=== PATIENT | male | born 1965 | race Caucasian/White ===

== ENCOUNTER 2021-03-28 19:02 | Inpatient (IN) | payer MEDICAID ==
[~2021-03-28] VITALS: Ht 182.9 cm; Wt 106.6 kg
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
[2021-03-28] MEDS ORDERED: ONDANSETRON HCL/PF 4 MG/2 ML VIAL ONE (20:23)
[2021-03-28] MEDS ORDERED: TDAP [DIPH/PERTUSSIS/TET] 0.5 ML VIAL IM ONE ×2 (20:23→20:30)
[2021-03-28] MEDS ORDERED: IV NS 0.9% 500 ML BAG IV ONE (20:30)
[2021-03-28] MEDS ORDERED: NALOXONE HCL 0.4 MG/ML AMPUL IV ONE (20:30)
[2021-03-28] MEDS ORDERED: ONDANSETRON HCL/PF 4 MG/2 ML VIAL IV ONE (20:30)
[2021-03-28 20:35] VITALS: BP 107/63
[2021-03-28] MEDS ORDERED: NALOXONE HCL 0.4 MG/ML AMPUL ONE (21:14)
--- NOTE | 2021-03-28 21:25 | NUR ---
COVID SWAB SENT TO LAB
--- NOTE | 2021-03-28 21:25 | NUR ---
BLOOD OBTAINED AND SENT TO LAB
[2021-03-28 21:29] LABS: BASOPHILS % (AUTO) 0.2 % (0.0-2.0); HEMATOCRIT 44 % (39-51); HEMOGLOBIN 14.4 g/dL (13.5-17.5); LYMPHOCYTES # (AUTO) 0.7 K/uL (0.8-4.8); LYMPHOCYTES % (AUTO) 3.9 % (20.0-44.0); MEAN CORPUSCULAR HGB CONC 33 g/dl (31.0-36.0); MEAN CORPUSCULAR VOLUME 86 fL (80-96); MONOCYTES # (AUTO) 0.9 K/uL (0.1-1.30); MONOCYTES % (AUTO) 4.7 % (2.0-12.0); NEUTROPHILS # (AUTO) 16.8 K/uL (1.8-8.9); NEUTROPHILS % (AUTO) 91.2 % (43.0-81.0); PLATELET COUNT (AUTO) 259 K/uL (150-450); RED BLOOD CELL COUNT(AUTO) 5.12 MIL/uL (4.5-6.0); WHITE BLOOD COUNT (AUTO) 18.4 K/uL (4.3-11.0)
--- NOTE | 2021-03-28 21:38 | NUR ---
CALL FROM LAB, RAPID COVID NEGATIVE.
[2021-03-28 21:44] LABS: ALBUMIN 3.9 g/dL (3.4-5.0); BILIRUBIN,DIRECT 0.1 mg/dL (0.0-0.2); BILIRUBIN,TOTAL 0.5 mg/dL (0.2-1.0); CREATININE 1.2 mg/dL (0.6-1.3); POTASSIUM 4.7 mmol/L (3.5-5.1); TOTAL PROTEIN, SERUM 7.9 g/dL (6.4-8.2)
--- NOTE | 2021-03-28 21:54 | NUR ---
TELE 063-5
--- NOTE | 2021-03-28 21:56 | NUR ---
PT REFUSED TO GIVE URINE, AWARE
[2021-03-28] MEDS ORDERED: ASPIRIN 81 MG TAB.CHEW PO ONE (22:00)
--- NOTE | 2021-03-28 22:11 | NUR ---
GAVE REPORT TO MICHEL JOHN FOR MYKEL
[2021-03-28] MEDS ORDERED: ZOLPIDEM TARTRATE 5 MG TABLET PO PRN (22:30)
[2021-03-28] MEDS ORDERED: MAG HYDROX/AL HYDROX/SIMETH 30 ML UDC PO PRN (22:30)
[2021-03-28] MEDS ORDERED: ONDANSETRON HCL/PF 4 MG/2 ML VIAL IVP PRN (22:30)
[2021-03-28] MEDS ORDERED: MAGNESIUM HYDROXIDE 30 ML UDC PO PRN (22:30)
[2021-03-28] MEDS ORDERED: Z GUARD REMEDY 2 OZ OINT TP PRN (22:30)
--- NOTE | 2021-03-28 22:45 | NUR ---
TOBACCO CLASSER ADMITTING NOTES RECEIVED PATIENT VIA [facility] ACCOMPANIED BY HENRI ACEVEDO RN NURSE AT 2230. PATIENT IS LETHARGIC, EYE OPENING TO SPEAK, VERBALLY RESPONSIVE, ABLE TO ANSWER QUESTIONS. WITH O2 VIA NC AT 4LPM, SATURATING WELL AT 97%. VS TAKEN AND RECORDED FOLLOWS TEMP 97.6, NM 60, RR 18, BP 107/63. ON CARDIAC MONITORING SHOWS NSR AND HR ON 60'S. NO ACUTE DISTRESS NOTED. NO SOB NOTED. ABRASIONS NOTED ON PATIENT'S RIGHT LOWER LEG, MID CHEST WALL. OLD WOUND ON PATIENT'S LEFT WRIST AND LEFT FOOT ALSO NOTED. PICTURE TAKEN AND FILED IN CHART. SAFETY PRECAUTIONS OBSERVED. BED PLACED ON LOWEST LOCKED POSITION, SIDE RAILS UP X 2. CALL LIGHT WITHIN EASY REACH. INSTRUCTED PATIENT TO CALL FOR ASSISTANCE WHEN NEEDED. PATIENT VERBALIZED UNDERSTANDING. ON CARDIAC DIET. NO COMPLAINTS OF PAIN, NO S/SX OF PAIN NOTED. WILL CONTINUE TO MONITOR PATIENT'S STATUS.
[2021-03-28] MEDS: IV 1/2NS 1000 ML 1,000 ML IV PRN (23:02)
[2021-03-28] MEDS: ENOXAPARIN SODIUM 40 MG/0.4 ML DISP.SYRIN SQ SCH (23:28)
[2021-03-29] VITALS: BP 107/63
[2021-03-29 04:00] VITALS: BP_SYST 114; BP_SYST 126; BP_SYST 127; BP_DIAS 51; BP_DIAS 67
--- NOTE | 2021-03-29 04:15 | NUR ---
RN NOTES PATIENT'S IV LINE NOTED TO BE INFILTRATED. CHECK FOR PATENCY, NO BACKFLOW OF BLOOD NOTED. REMOVED IV ACCESS. TRIED TO REINSERT IV ACCESS, UNSUCCESSFUL ATTEMPTS, DR. JAIN MADE AWARE.
[2021-03-29 04:29] LABS: BASOPHILS % (AUTO) 0.2 % (0.0-2.0); EOSINOPHILS % (AUTO) 0.1 % (0.0-6.0); HEMATOCRIT 47 % (39-51); HEMOGLOBIN 15.6 g/dL (13.5-17.5); LYMPHOCYTES # (AUTO) 1.4 K/uL (0.8-4.8); LYMPHOCYTES % (AUTO) 12.1 % (20.0-44.0); MEAN CORPUSCULAR HGB CONC 33 g/dl (31.0-36.0); MEAN CORPUSCULAR VOLUME 85 fL (80-96); MONOCYTES # (AUTO) 0.5 K/uL (0.1-1.30); MONOCYTES % (AUTO) 4.3 % (2.0-12.0); NEUTROPHILS # (AUTO) 9.5 K/uL (1.8-8.9); NEUTROPHILS % (AUTO) 83.3 % (43.0-81.0); PLATELET COUNT (AUTO) 261 K/uL (150-450); RED BLOOD CELL COUNT(AUTO) 5.52 MIL/uL (4.5-6.0); WHITE BLOOD COUNT (AUTO) 11.4 K/uL (4.3-11.0)
[2021-03-29 04:46] LABS: CALCIUM, SERUM 8.7 mg/dL (8.5-10.1); CREATININE 1.2 mg/dL (0.6-1.3); MAGNESIUM 2.1 mg/dL (1.8-2.4); PHOSPHORUS 4.1 mg/dL (2.5-4.9)
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
[2021-03-29 04:59] LABS: THYROID STIMULATING HORMONE 0.731 uIU/mL (0.358-3.74)
[2021-03-29 06:08] LABS: BILIRUBIN,URINE NEGATIVE (NEGATIVE); COLOR,URINE YELLOW (YELLOW); LEUKOCYTE ESTERASE ,URINE NEGATIVE (NEGATIVE); NITRITE, URINE NEGATIVE (NEGATIVE); PROTEIN,URINE 30 mg/dl (NEGATIVE); UGLUCOSE NEGATIVE (NEGATIVE); UROBILINOGEN,URINE 0.2 EU/dL (0.2)
--- NOTE | 2021-03-29 06:34 | NUR ---
327 2 BLOWER ROOM ATTENDANT CLOSING NOTES PATIENT IN BED, ASLEEP, EASILY AWAKEN BY VERBAL AND TACTILE STIMULI. ON O2 VIA NC AT 4LPM, SATURATING WELL AT 97%. VS WNL. FOR MIDLINE INSERTION. ON CARDIAC MONITORING NSR, HR ON 60'S. NO ACUTE DISTRESS NOTED. NO SOB NOTED. SAFETY PRECAUTIONS OBSERVED; BED PLACED ON LOWEST LOCKED POSITION, SIDE RAILS UP X 2. CALL LIGHT WITHIN EASY REACH. NO COMPLAINTS OF PAIN, NO S/SX OF PAIN NOTED AT THIS TIME. ENDORSED TO MORNING SHIFT NURSE FOR CONTINUITY OF CARE.
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
[2021-03-29 07:16] LABS: BACTERIA,URINE None seen /HPF (None Seen); RBC,URINE 0-2 /HPF (0-2); SQUAMOUS EPITHELIAL CELL,UR Few /HPF (None Seen); URINE AMORPHOUS URATE Many /HPF (None Seen); WBC,URINE 0-2 /HPF (0-3)
[2021-03-29] MEDS ORDERED: PANTOPRAZOLE 40 MG TABLET.DR PO SCH (07:30)
--- NOTE | 2021-03-29 07:30 | NUR ---
GLOBAL SAFETY OFFICER NOTES PT IN BED, AWAKE, ALERT AND ORIENTED TO SELF, VERBALLY RESPONSIVE, NO COMPLAINT OF PAIN, NOT IN DISTRESS, DROWSY, CALL LIGHT WITHIN REACH, REALITY ORIENTATION PROVIDED, NEEDS ATTENDED.
[2021-03-29 08:19] VITALS: BP 116/68
[2021-03-29] MEDS: ASPIRIN EC 81 MG TABLET.DR PO SCH (08:34)
[2021-03-29] MEDS: PANTOPRAZOLE 40 MG VIAL IV SCH ×2 (08:34→11:39)
--- NOTE | 2021-03-29 08:34 | NUR ---
MUSIC SOUND LIGHT TECHNICIAN NOTES AM MEDS NOT GIVEN, PT NPO, NO IV LINE, AWAITING MIDLINE PLACEMENT.
--- NOTE | 2021-03-29 11:31 | NUR ---
ER RN NOTES MINDLINE PLACED BY MIKEY RENO AT LEFT UPPER ARM G18, PT TOLERATED PROCEDURE WELL
[2021-03-29 12:04] VITALS: BP 122/68
[2021-03-29] MEDS: METOPROLOL TARTRATE 25 MG TABLET PO SCH ×2 (12:30→20:40)
[2021-03-29] MEDS ORDERED: IV NS 0.9% 250 ML IV ONE (12:31)
[2021-03-29] MEDS ORDERED: NITROGLYCERIN 0.4 MG/TAB BOTTLE ONE (12:31)
[2021-03-29] MEDS ORDERED: CT SWABBABLE VALVE TRANS SET 1 EA INFUS.SET MC ONE (12:31)
[2021-03-29] MEDS ORDERED: METOPROLOL TARTRATE INJ 5 MG/5 ML AMPUL ONE (12:31)
[2021-03-29] MEDS ORDERED: IOHEXOL-350 100 ML VIAL IV ONE ×2 (12:31→13:11)
[2021-03-29] MEDS: ATORVASTATIN 40 MG TABLET PO SCH (13:00)
[2021-03-29] MEDS ORDERED: METOPROLOL TARTRATE INJ 5 MG/5 ML AMPUL IVP PRN (13:00)
[2021-03-29] MEDS ORDERED: IV NS 0.9% 500 ML IV ONE (13:00)
[2021-03-29] MEDS ORDERED: NITROGLYCERIN 0.4 MG/TAB BOTTLE SL ONE (13:00)
--- NOTE | 2021-03-29 13:22 | NUR ---
CTA PROCEDURE DONE PER PT HE FEELS NAUSEOUS. V/S STABLE, KEPT RESTED AND COMFORTABLE. REPORT GIVEN TO MICHEL RAMAN FOR MYKEL.
--- NOTE | 2021-03-29 13:34 | NUR ---
POWER EQUIPMENT MECHANICS INSTRUCTOR NOTES PT BACK FROM CT ANGIO, TOLERATED WELL, PT STILL SLEEPY, DUE MEDS NOT GIVEN, PT GIVEN METOPROLOL AT THE CT SCAN.
[2021-03-29 15:49] VITALS: BP 110/60
--- NOTE | 2021-03-29 18:42 | NUR ---
LEAD RECREATION ASSISTANT NOTES PT IN BED, RESTING, NO COMPLAINT AT THIS TIME, NOT IN DISTRESS, NO FURTHER EPISODE OF NAUSEA OR VOMITING, PER DR. MEIER, OK TO START ON CLEAR LIQUID DIET, TOLERATED WELL, PM CARE PROVIDED, ALL NEEDS ATTENDED.
--- NOTE | 2021-03-29 19:25 | NUR ---
TELE/RN OPENING NOTE RECEIVED PATIENT SLEEPING IN BED. ALERT AND ORIENTED X 1-2. ABLE TO MAKE NEEDS KNOWN. NO COMPLAINTS OF PAIN AT THIS TIME. CONTINUES ON 4L O2 VIA NC WITH NO S/SX OF RESPIRATORY DISTRESS NOTED. IV ACCESS TO LEFT UPPER ARM MIDLINE #20G INTACT AND PATENT. CONTINUES ON IV 0.45% NS @ 75ML/HR. CONTINUES ON CLEAR LIQUID DIET WITH NO S/SX OF NAUSEA OR VOMITING NOTED. TELE MONITOR CURRENTLY READING NSR HR 62. CALL LIGHT WITHIN REACH. ASPIRATION, FALL AND SAFETY PRECAUTIONS MAINTAINED. WILL CONTINUE TO MONITOR. Addendum: 03/29/21 at 1950 by DAVID ALEXANDRA RN PATIENT IS ALERT AND ORIENTED X 4 AT THIS TIME.
[2021-03-29 20:00] VITALS: BP 112/52
[2021-03-29] MEDS: IV 1/2NS 1000 ML 1,000 ML IV PRN (20:40)
[2021-03-29] MEDS: ENOXAPARIN SODIUM 40 MG/0.4 ML DISP.SYRIN SQ SCH (20:43)
[2021-03-30] VITALS (7 sets, daily range): BP systolic 128–153; BP diastolic 56–78
--- NOTE | 2021-03-30 06:25 | NUR ---
TELE/RN CLOSING NOTE PATIENT CURRENTLY SLEEPING IN BED. ALERT AND ORIENTED X 3. ABLE TO MAKE NEEDS KNOWN. NO COMPLAINTS OF PAIN AT THIS TIME. CONTINUES ON 4L O2 VIA NC WITH NO S/SX OF RESPIRATORY DISTRESS NOTED. IV ACCESS TO LEFT UPPER ARM MIDLINE #20G INTACT AND PATENT. CONTINUES ON IV 0.45% NS @ 75ML/HR. CONTINUES ON CLEAR LIQUID DIET WITH NO S/SX OF NAUSEA OR VOMITING NOTED. TELE MONITOR CURRENTLY READING NSR HR 60. CALL LIGHT WITHIN REACH. ASPIRATION, FALL AND SAFETY PRECAUTIONS MAINTAINED. WILL ENDORSE PLAN OF CARE TO ONCOMING SHIFT.
--- NOTE | 2021-03-30 07:20 | NUR ---
ms rn received on bed, awake,alert,oriented x3,not in any form of distress, respirations even and unlabored,no sob noted, lungs have some crackles,denies pain at this time, will monitor patient's condition.
[2021-03-30 07:22] LABS: BASOPHILS % (AUTO) 0.3 % (0.0-2.0); EOSINOPHILS % (AUTO) 1.4 % (0.0-6.0); HEMATOCRIT 39 % (39-51); HEMOGLOBIN 12.8 g/dL (13.5-17.5); LYMPHOCYTES # (AUTO) 1.4 K/uL (0.8-4.8); LYMPHOCYTES % (AUTO) 13.4 % (20.0-44.0); MEAN CORPUSCULAR HGB CONC 33 g/dl (31.0-36.0); MEAN CORPUSCULAR VOLUME 85 fL (80-96); MONOCYTES # (AUTO) 0.8 K/uL (0.1-1.30); MONOCYTES % (AUTO) 8.1 % (2.0-12.0); NEUTROPHILS # (AUTO) 7.8 K/uL (1.8-8.9); NEUTROPHILS % (AUTO) 76.8 % (43.0-81.0); PLATELET COUNT (AUTO) 193 K/uL (150-450); RED BLOOD CELL COUNT(AUTO) 4.55 MIL/uL (4.5-6.0); WHITE BLOOD COUNT (AUTO) 10.1 K/uL (4.3-11.0)
[2021-03-30 07:43] LABS: ALBUMIN 3.2 g/dL (3.4-5.0); BILIRUBIN,TOTAL 0.7 mg/dL (0.2-1.0); CALCIUM, SERUM 8.7 mg/dL (8.5-10.1); CREATININE 0.9 mg/dL (0.6-1.3); MAGNESIUM 1.9 mg/dL (1.8-2.4); PHOSPHORUS 1.6 mg/dL (2.5-4.9); POTASSIUM 3.9 mmol/L (3.5-5.1)
--- NOTE | 2021-03-30 08:50 | NUR ---
MS PEARSON BREAKFAST SERVED DUE MEDS GIVEN,TOLERATED WELL.
[2021-03-30] MEDS: PANTOPRAZOLE 40 MG VIAL IV SCH (08:55)
[2021-03-30] MEDS: ASPIRIN EC 81 MG TABLET.DR PO SCH (08:56)
[2021-03-30] MEDS: METOPROLOL TARTRATE 25 MG TABLET PO SCH ×2 (08:56→21:00)
--- NOTE | 2021-03-30 08:59 | NUR ---
ms rn was seen by dr. qiu w/ rebeca to ok to eat solids.
[2021-03-30] MEDS ORDERED: K PHOS NEUTRAL 250 MG TABLET PO ONE (10:30)
--- NOTE | 2021-03-30 12:00 | NUR ---
rn lunch given, tolerated well.
[2021-03-30] MEDS: ACETAMINOPHEN 325 MG TABLET PO PRN ×2 (15:03→23:33)
--- NOTE | 2021-03-30 15:30 | NUR ---
ms rn still waiting for lisbet schultz to see patient.
[2021-03-30] MEDS ORDERED: ASPI-1420 PO (16:40)
[2021-03-30] MEDS ORDERED: ATOR40TA PO (16:40)
--- NOTE | 2021-03-30 16:58 | NUR ---
ms rn on bed, no distress noted.
--- NOTE | 2021-03-30 18:00 | NUR ---
ms rn texted dr. schultz, patient request to go home in am,nobody come to pick him up, but taxi voucher is good,per lisbet.
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
--- NOTE | 2021-03-30 19:00 | NUR ---
ms rn patient on bed, endorsed to body welder for continuity of care.
--- NOTE | 2021-03-30 19:30 | NUR ---
RECEIVED PT IN BED. AOX4. PT IS ON RA. NO SOB NOTED. NO S/S OF DISTRESS NOTED. PT IS BRP WIT ASSIST AND INDEPENDENT; PT HAS NO C/O PAIN AT THIS TIME; RESPIRATIONS EVEN AND UNLABORED. ABLE TO MAKE NEEDS KNOWN. IV ACCESS TO AMAYA MIDLINE #20G INTACT, PATENT AND FLUSHING WELL.T ARTHUR WITH A READING OF SB AT 57. ALL AND SAFETY MEASURES IN PLACE AND MAINTAINED AT ALL TIMES; BED ALARM ON, BED IN LOW AND LOCKED POSITION, HOB ELEVATED TO SEMI FOWLERS POSITION, CALL LIGHT AND TABLE WITHIN REACH, SIDE RAILS UPX2. WILL CONTINUE WITH PLAN OF CARE
--- NOTE | 2021-03-30 19:35 | NUR ---
RN NOTES Talked to the patient that and informed him that were discharging him and we're going to give him a taxi voucher , patient complaining that nobody told him but the [facility] nurse was with me and told him that since earlier she's been telling him that she's going to discharge him. Patient complained that nobody see him but I explained to the patient that the Senior Manager saw him and cleared him. I also told him that were going to give him a taxi voucher.. patient agreed. [facility] nurse went down to get the voucher
--- NOTE | 2021-03-30 19:40 | NUR ---
RN NOTES PATIENT REFUSED TO TAKE PICTURE OF THE WOUNDS AND SCRATCHES ON HIS BODY. DISCHARGE INSTRUCTIONS WAS GIVEN .
--- NOTE | 2021-03-30 20:55 | NUR ---
RN NOTES AFTER GIVING THE TAXI VOUCHER , PATIENT NOW TELLING ME THAT HE LIVES IN [facility] AND HE'S COMPLAINING THAT HE CAN'T WALK. SPOKE TO DR. MEIER AND INFORMED HIM REGARDING PATIENT'S COMPLAINED. DR. MEIER GAVE AN ORDER THAT PATIENT CAN STAY OVERNIGHT. ORDER NOTED AND CARRIED OUT
[2021-03-30] MEDS: ATORVASTATIN 40 MG TABLET PO SCH (21:23)
[2021-03-30] MEDS: ENOXAPARIN SODIUM 40 MG/0.4 ML DISP.SYRIN SQ SCH (21:23)
--- NOTE | 2021-03-30 23:33 | NUR ---
PT C/O ACHING PAIN 12/12 , PER PT REQUEST TYLENOL 325MG (2 TABS) PO Q6HR PRN ADMINISTERED PER ORDER. WILL CONTINUE TO MONITOR PATIENT.
--- NOTE | 2021-03-31 01:45 | NUR ---
RN NOTES Patient friend Faye came and picked-up the patient ... Patient refused Vital signs, refused to take his discharge papers, explained the benefits of the discharge papers but patient still refused to take it. Patient left the hospital via private car and in stable condition
--- NOTE | 2021-03-31 01:50 | NUR ---
BORING MACHINE OPERATOR VERTICALMAKE UP GIRL NOTE PT DISCHARGED HOME WITH SELF CARE AT THIS TIME. PT MEDICALLY STABLE AND CLEARED FOR DISCHARGE . ALL PT CARE, NEEDS, MEDICATIONS, AND TREATMENT ADMINISTERED ANTICIPATED PER ORDER. ALL DISCHARGE INSTRUCTIONS PROVIDED. PT VERBALIZED UNDERSTANDING. PT KEPT CLEAN AND DRY. BELONGING LIST ACCOUNTED FOR, SIGNED BY PATIENT, AND WITH PATIENT. ID BAND REMOVED, IV ACCESS REMOVED, PRESSURE APPLIED AND SECURED WITH GAUZE AND TAPE. NO S/O BLEEDING OR INFILTRATION NOTED. PT TRANSPORTED TO [facility] BY WHEELCHAIR, ACCOMPANIED BY CNA. BRITTNEE BYRD, CHARGE NURSE AWARE.
== END 2021-03-31 01:45 | disposition home or self-care (01) | DRG 812 ==
LOC: ER 19:09 → TELE 22:00 → MED 03-30 21:13
PROVIDERS: ADMIT Student in an Organized Health Care Education/Training Program; ATTEND Nurse Practitioner Acute Care
PROC: 05HC33Z Insertion of Infusion Device into Left Basilic Vein, Percutaneous Approach (ICD-10-PCS; principal; 2021-03-29)
DX: T40.2X1A Poisoning by other opioids, accidental (unintentional), initial encounter (principal); I21.A1 Myocardial infarction type 2; G93.40 Encephalopathy, unspecified; J90 Pleural effusion, not elsewhere classified; K21.00 Gastro-esophageal reflux disease with esophagitis, without bleeding; G90.8 Other disorders of autonomic nervous system; D72.829 Elevated white blood cell count, unspecified; E86.0 Dehydration; Z20.822 Contact with and (suspected) exposure to COVID-19; F10.129 Alcohol abuse with intoxication, unspecified; Y90.0 Blood alcohol level of less than 20 mg/100 ml; F15.10 Other stimulant abuse, uncomplicated; R79.89 Other specified abnormal findings of blood chemistry; F12.90 Cannabis use, unspecified, uncomplicated; Z86.19 Personal history of other infectious and parasitic diseases; Z91.19 Patient's noncompliance with other medical treatment and regimen; J98.11 Atelectasis; F17.200 Nicotine dependence, unspecified, uncomplicated; Y92.009 Unspecified place in unspecified non-institutional (private) residence as the place of occurrence of the external cause
CPT/HCPCS: 36415; 70450-TC; 71045-TC; 75574; 80048-TC; 80053-TC; 80061-TC; 80076-TC; 81001; 83690-TC; 83735-TC; 84100-TC; 84443-TC; 84484-TC; 85025-TC; 87081-TC; 90715; 93307-TC; 97116-TC; 97530-TC; C9113; C9803; G0378; G0480; J1650; J2310; J2405; J3490; J7030; J7050; Q9967